=== PATIENT | male | born 1955 | race Caucasian/White ===

== ENCOUNTER 2017-04-23 23:27 | Emergency (ER) | payer OTHER ==
--- NOTE | 2017-04-24 00:17 | ED Physician Documentation ---
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 Has had vomiting just the past 2-3 hours. Poor intake due to nausea though.) Associated symptoms: Abdominal pain (diffuse, crampy, intermittent). No: Fever , Chest pain, Hematemesis, Melena, Hematochezia, Dysuria Contributing factors: No: Sick contact, Bad food, Travel, Recent antibiotics, Anticoagulated Improved by: No: Vomiting, BM Worsened by: Eating Similar symptoms before: Has not had sx before (no prior colitis nor diverticulitis.) Recently seen: Not recently seen Review of Systems Constitutional: reports: Myalgias. denies: Fever, Chills Nose: denies: Rhinorrhea / runny nose, Congestion Throat: denies: Sore throat Cardiac: denies: Chest pain / pressure Respiratory: denies: Cough GI: reports: Abdominal Pain, Nausea, Vomiting, Diarrhea. denies: Abdominal Swelling, Constipation, Hematemesis, Bloody / black stool : denies: Dysuria, Frequency Skin: denies: Rash, Lesions Musculoskeletal: denies: Extremity swelling Neurologic: reports: Generalized weakness. denies: Focal weakness, Near syncope Endocrine: denies: Easy bruising / bleeding Immunocompromised: denies: Immunocompromised PD PAST MEDICAL HISTORY - Past Medical History Past Medical History: No Endocrine/Autoimmune: None GI: None - Past Surgical History Past Surgical History: Yes - Present Medications Home Medications: Ambulatory Orders Medication Instructions Recorded Confirmed Diphenoxylate/Atropine [Lomotil] 1 each PO QID PRN #15 tablet 04/24/17 Ondansetron Odt [Zofran] 4 mg TL Q6H PRN #15 tablet 04/24/17 - Allergies Allergies/Adverse Reactions: Allergies Allergy/AdvReac Type Severity Reaction Status Date / Time No Known Drug Allergies Allergy Verified 04/23/17 23:40 - Social History Does the pt smoke?: No Smoking Status: Never smoker Does the pt drink ETOH?: No Does the pt have substance abuse?: No - Family History Family history: reports: Non contributory - Immunizations Immunizations are current?: Yes - POLST Patient has POLST: No PD ED PE NORMAL - Vitals Vital signs reviewed: Yes - General General: Alert and oriented X 3, No acute distress, Well developed/nourished - HEENT HEENT: PERRL (nonicteric), Pharynx benign - Neck Neck: Supple, no meningeal sign, No adenopathy - Cardiac Cardiac: RRR, No murmur - Respiratory Respiratory: Clear bilaterally - Abdomen Abdomen: Soft, Non tender, Non distended, No organomegaly. 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 ) - Back Back: No CVA TTP - Derm Derm: Normal color, Warm and dry - Extremities Extremities: No edema, No calf tenderness / cord - Neuro Neuro: Alert and oriented X 3, No motor deficit, Normal speech Results - Vitals Vitals: Vital Signs - 24 hr 04/23/17 04/24/17 04/24/17 23:38 01:21 01:52 Temperature 36.7 C Heart Rate 87 74 76 Respiratory 22 18 16 Rate Blood Pressure 129/83 H 142/66 H 121/76 O2 Saturation 96 100 97 Oxygen O2 Source Room air - Labs Labs: Microbiology 04/23/17 23:50 Clostridium difficile (PCR) - Final Stool 04/23/17 23:50 Campylobacter Antigen Assay - Final Stool Laboratory Tests 04/24/17 04/24/17 01:02 01:02 WBC 9.7 RBC 5.97 Hgb 17.5 Hct 51.5 MCV 86.2 MCH 29.3 MCHC 33.9 RDW 13.0 Plt Count 159 MPV 9.1 Neut # 7.9 H Lymph # 0.6 L [place] # 0.9 Eos # 0.0 Baso # 0.2 H Absolute Nucleated RBC 0.01 Nucleated RBCs 0.1 Sodium 137 Potassium 3.6 Chloride 105 Carbon Dioxide 24 Anion Gap 8.0 BUN 23 H Creatinine 1.0 Estimated GFR (MDRD) 76 L Glucose 131 H Calcium 8.4 L Magnesium 2.2 Total Bilirubin 0.9 AST 30 ALT 53 Alkaline Phosphatase 77 Total Protein 7.6 Albumin 4.4 Globulin 3.2 Albumin/Globulin Ratio 1.4 Lipase 24 PD MEDICAL DECISION MAKING - ED course Complexity details: considered differential (no focal tenderness in abd. Has vomiting and diarrhea abruptly. Presume viral GE vs. bacterial enteritis or food related. Less likely inflammatory and lower suspicion for focal such as diverticulitis nor appendicitis, given no focal tenderness. He is feeling better with fluids and meds here. Initial stool tests and labs are good. ), d/w patient Departure - Departure Disposition: 01 Home, Self Care Clinical Impression: Nausea vomiting and diarrhea Condition: Stable Record reviewed to determine appropriate education?: Yes Instructions: ED Diet Vomiting Diarrhea Prescriptions: Diphenoxylate/Atropine [Lomotil] 1 each PO QID PRN #15 tablet PRN Reason: Diarrhea Ondansetron Odt [Zofran] 4 mg TL Q6H PRN #15 tablet PRN Reason: Nausea / Vomiting Comments: Frequent fluids. Starches such as rice, breads, cereals to begin and progress diet as able. Zofran for nausea as needed. Lomotil for diarrhea as needed. Tylenol or hydrocodone as needed for cramps/pains. Recheck if not better in 1-2 days, or if other symptoms such as fevers, bloody stools, focal pains, other concerns. Discharge Date/Time: 04/24/17 02:29
[2017-04-24] MEDS ORDERED: SODIUM CHLORIDE 0.9% 1,000 ML IV ONE (00:41)
[2017-04-24] MEDS ORDERED: KETOROLAC 60 MG/2 ML VIAL IVP STA (00:41)
[2017-04-24] MEDS ORDERED: HYDROmorphone 1 MG/ML SYRINGE IVP STA (00:41)
[2017-04-24] MEDS ORDERED: ONDANSETRON 4 MG/2 ML VIAL IVP STA (00:41)
[2017-04-24] MEDS ORDERED: DIPHENOX/ATROPINE 2.5/0.025 MG TABLET PO STA (00:41)
[2017-04-24] MEDS ORDERED: KETOROLAC 30 MG/ML VIAL ONE (00:48)
[2017-04-24] MEDS ORDERED: HYDROmorphone 1 MG/ML SYRINGE ONE (00:48)
[2017-04-24] MEDS ORDERED: DIPHENOX/ATROPINE 2.5/0.025 MG TABLET PO ONE (00:49)
[2017-04-24] MEDS ORDERED: ONDANSETRON 4 MG/2 ML VIAL ONE (00:49)
[2017-04-24 01:13] LABS: BASOPHILS # (AUTO) 0.2 10^3/uL (0.0-0.1); BASOPHILS % (AUTO) 2.1 %; EOSINOPHILS % (AUTO) 0.2 %; HCT - HEMATOCRIT 51.5 % (42.0-52.0); HGB - HEMOGLOBIN 17.5 g/dL (14.0-18.0); LYMPHOCYTES # (AUTO) 0.6 10^3/uL (1.5-3.5); LYMPHOCYTES % (AUTO) 6.6 %; MEAN CORPUSCULAR HEMOGLOBIN 29.3 pg (27.0-31.0); MEAN CORPUSCULAR HGB CONC 33.9 g/dL (32.0-36.0); MEAN CORPUSCULAR VOLUME 86.2 fL (80.0-94.0); MEAN PLATELET VOLUME 9.1 fL (7.4-11.4); MONOCYTES # (AUTO) 0.9 10^3/uL (0.0-1.0); MONOCYTES % (AUTO) 9.6 %; NEUTROPHILS # (AUTO) 7.9 10^3/uL (1.5-6.6); NEUTROPHILS % (AUTO) 81.5 %; NUCLEATED RED BLOOD CELLS AUTO 0.1 /100WBC; RED BLOOD COUNT 5.97 10^6/uL (4.70-6.10); UNCORRECTED WHITE BLOOD COUNT 9.7 x10^3/uL; WHITE BLOOD COUNT 9.7 x10^3/uL (4.8-10.8)
[2017-04-24 01:23] LABS: ALBUMIN/GLOBULIN RATIO 1.4 (1.0-2.2); BILIRUBIN,TOTAL 0.9 mg/dL (0.2-1.0); CALCIUM 8.4 mg/dL (8.5-10.3); MAGNESIUM 2.2 mg/dL (1.7-2.8); POTASSIUM 3.6 mmol/L (3.5-5.0); TOTAL PROTEIN 7.6 g/dL (6.7-8.2)
[2017-04-24 01:54] VITALS: BP 121/76
[2017-04-24] MEDS ORDERED: ONDANSETRON ODT 4 MG Prepack 2 TL PRN (02:05)
[2017-04-24] MEDS ORDERED: HYDROcod/ACET 5/325 Prepack 6 PO ONE ×2 (02:05→02:10)
[2017-04-24] MEDS ORDERED: ONDANSETRON ODT 4 MG Prepack 2 TL ONE (02:11)
== END 2017-04-24 02:29 | disposition home or self-care (01) ==
LOC: ED 23:27
DX: R19.7 Diarrhea, unspecified (principal); R11.2 Nausea with vomiting, unspecified; R10.84 Generalized abdominal pain
CPT/HCPCS: 36415; 80053; 83690; 83735; 85025; 87045; 87046; 87077; 87493; 96361; 96374; 96375; 99284; A9270; J1170

== ENCOUNTER 2018-06-05 14:04 | Outpatient (CLI) | payer OTHER ==
[2018-06-05 18:07] LABS: BUN - BLOOD UREA NITROGEN 22 mg/dL (6-20); CALCIUM 8.9 mg/dL (8.5-10.3); CARBON DIOXIDE - CO2 26 mmol/L (21-32); CHLORIDE 102 mmol/L (101-111); CHOL/HDL RATIO 7.3 (<5.0); CHOLESTEROL 240 mg/dL; CREATININE 1.1 mg/dL (0.6-1.2); GFR - MDRD 68 (>89); GLUCOSE 89 mg/dL (70-100); HDL CHOLESTEROL 33 mg/dL; LDL CHOLESTEROL,CALCULATED 183 mg/dL; LDL/HDL RATIO 5.5 (<3.6); SODIUM 136 mmol/L (135-145); VLDL CHOLESTEROL 24 mg/dL
== END 2018-06-05 14:05 | disposition home or self-care (01) ==
LOC: LAB.F 14:04
PROVIDERS: ATTEND Internal Medicine
DX: Z00.00 Encounter for general adult medical examination without abnormal findings (principal)
CPT/HCPCS: 36415; 80048; 80061; 83721

== ENCOUNTER 2018-11-14 08:53 | Outpatient (CLI) | payer OTHER ==
--- NOTE | 2018-11-14 12:42 | XRAY Report ---
Reason: SHORTNESS OF BREATH Procedure Date: 11/14/2018 Accession Number: [id number] / [id number] Procedure: XR - Chest 2 View X-Ray CPT Code: 75367 FULL RESULT: EXAM: CHEST RADIOGRAPHY EXAM DATE: 11/14/2018 09:13 AM. CLINICAL HISTORY: SHORTNESS OF BREATH. COMPARISON: None. TECHNIQUE: 2 views. FINDINGS: Lungs/Pleura: No focal opacities evident. No pleural effusion. No pneumothorax. Normal volumes. Mediastinum: Heart and mediastinal contours are unremarkable. Other: None. IMPRESSION: No pneumonia. RADIA
== END 2018-11-14 08:54 | disposition home or self-care (01) ==
LOC: DI 08:53
PROVIDERS: ATTEND Nurse Practitioner Family
DX: R06.02 Shortness of breath (principal)
CPT/HCPCS: 71046

== ENCOUNTER 2018-12-06 09:05 | Outpatient (CLI) | payer OTHER | END 2018-12-06 09:06 | disposition home or self-care (01) | LOC: RT 09:05 | PROVIDERS: ATTEND Nurse Practitioner Family | DX: R06.2 Wheezing (principal) | CPT/HCPCS: 94010 ==

== ENCOUNTER 2019-10-26 07:54 | Day surgery (SDC) | payer OTHER ==
[~2019-10-26 07:54] MED LIST: LIDO GARGLE 30 ML BOTTLE PO ONE
[2019-10-26] MEDS ORDERED: fentaNYL 250 MCG/5 ML VIAL IVP ONE (07:55)
[2019-10-26] MEDS ORDERED: MIDAZOLAM 2 MG/2 ML VIAL IVP ONE (07:55)
[2019-10-26] MEDS ORDERED: LACTATED RINGERS 1,000 ML IV ONE ×2 (08:30→10:35)
[2019-10-26] MEDS ORDERED: LIDO GARGLE 30 ML BOTTLE ONE (08:33)
[2019-10-26 11:15] VITALS: BP 117/70
== END 2019-10-26 07:55 | disposition home or self-care (01) ==
LOC: SDS 07:54
PROVIDERS: ATTEND Internal Medicine Gastroenterology
PROC: 0DBN8ZZ Excision of Sigmoid Colon, Via Natural or Artificial Opening Endoscopic (ICD-10-PCS; principal; 2019-10-26 10:00)
PROC: 0DB58ZX Excision of Esophagus, Via Natural or Artificial Opening Endoscopic, Diagnostic (ICD-10-PCS; 2019-10-26 10:00)
DX: Z12.11 Encounter for screening for malignant neoplasm of colon (principal); K21.9 Gastro-esophageal reflux disease without esophagitis; D12.5 Benign neoplasm of sigmoid colon; K57.30 Diverticulosis of large intestine without perforation or abscess without bleeding; K20.9 Esophagitis, unspecified; E66.9 Obesity, unspecified; Z68.30 Body mass index [BMI] 30.0-30.9, adult; R06.83 Snoring; Z87.891 Personal history of nicotine dependence
CPT/HCPCS: 43239; 45380; A9270; J3010; J7120

== ENCOUNTER 2019-11-30 09:28 | Outpatient (CLI) | payer OTHER ==
[2019-11-30 10:59] VITALS: BP 152/87
--- NOTE | 2019-11-30 10:59 | SLEEP CARE CONSULTATION ---
Information from patient questionnaire entered by Gabriela Harrison. I have reviewed and concur with the information entered by Gabriela Harrison. This document represents the service I personally performed and the decisions made by me, Lisa Esposito MD, [facility]. History of Present Illness Reason for Visit: New patient Chief Complaint: reports: Snoring Duration of Symptoms: 3-4 years Usual bedtime: 2000 Time it takes to fall asleep: 15-30 minutes Snores at night: Yes Observed to quit breathing while asleep: Yes Sleeps alone due to snoring: Yes Number of times waking at night: 1-3 Reasons for waking at night: reports: Bathroom, Other (unknown reasons) Recalls having dreams: No Usually gets out of bed at: 0420 Feels refreshed in the morning: No Morning headache: Yes (days off) Sleepy or fatigued during the day: No Ever fallen asleep while driving: No Takes day naps: No Dreams during day naps: No Prior sleep studies: Yes Year and Where: 2007 [facility] now [facility] Additional HPI information: I had the pleasure of seeing Mr. Gomes today regarding the possibility of him having a sleep disorder. As you know, he is a 64 year old gentleman who complains of loud snore. He had a sleep study in [place] in 2007 and was told that everything was within normal limits. Since then he gained 50 lbs. The patient tells me that he normally goes to bed around 8 pm, and it takes him approximately 15 - 30 minutes to fall asleep. He has been told that he snores loudly and irregularly at night. He has also been observed to stop breathing in his sleep. His bed partner has to sleep in a separate room. He can recall waking up on the average of 1 - 3 times during the night. Most of the time he wakes up because of having to use the bathroom. He has awakened occasionally because of his own snoring, choking, and having to gasp for air. There is not a lot of tossing and turning in his sleep. No somniloquy (sleep talking) or somnambulism (sleep walking). Generally there is no recollection of dreams. In the morning he usually gets up out of the bed around 4:20 a.m. not feeling refreshed nor rested. He usually has a morning headache but only his days off. During the day he does not feel sleepy and fatigued. His score on [place] Sleepiness Scale is 3 out of 24. He has never fallen asleep while driving nor has had any accident due to sleepiness. He usually does not take naps during the day. Upon falling asleep during the day he denies having vivid dreams. He has never had sleep paralysis, experienced cataplexy or symptoms of restless leg syndrome. He reports having impaired concentration during the day. 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 Patient is Single and lives in [place]. Have you smoked in the past 12 months: No Cigarettes per day (20/pack): 20 Years of smokin Quit date: Smoking Pack Years: 35.0 Alcohol use: No Caffeine use: Yes Caffeine amount and frequency: 7-8 cups Family History Family history of sleep disordered breathing: Yes Family Hx Sleep Apnea: Mother: Snoring, Father: Snoring Allergies and Home Medications Known drug allergies: No Drug allergies reviewed: Yes Home medication list reviewed: Yes (esomeprazole) Review of Systems Weight gain over past 5 years: 10-15 Cardiovascular: reports: high blood pressure, irregular heart rate or pulse Respiratory: denies: shortness of breath, wheeze, sputum production, chronic cough, other Gastrointestinal: reports: heartburn Urinary: denies: incontinence, frequency, urgency, impotence, other Neurological: denies: headaches, seizure, head trauma, disorientation, speech dysfunction, gait or balance problems, fainting or unconsciousness, other Psychiatric: denies: Attention Deficit Hyperactivity, anxiety, depression, mood disorder, claustrophobia, other Ear/Nose/Throat: reports: nasal congestion, wisdom teeth removed Endocrine: denies: thyroid disease, history of goiter, sluggishness, too hot or cold, excessive thirst, increased appetite, increased urination, unexplained weakness, other Musculoskeletal: reports: joint pain Immunologic: denies: sneezing, rash, itching, allergies to food or environment, other Physical Exam Vital signs obtained and entered by: Dr. Nikomborirak Blood Pressure: 152/87 Cuff size: regular Heart Rate: 59 O2 Saturation: 97 Height: 5 ft 8 in Weight: 182 lb Body Mass Index: 27.6 BMI Classification: Overweight Neck circumference: 16 Mood/affect: Normal. HEENT: No craniofacial malformation Nostrils: patent to airflow Turbinates: normal Septum: midline Mouth and throat: narrow oropharynx Soft palate: long Hard palate: arched Uvula: normal Uvula visualization: 25% Mallampati Class III Tongue: normal in size Tonsils: small Chin and jaw: normal size and position Neck: normal w/o lymphadenopathy or thyromegaly Heart: regular rate and rhythm Lungs: clear bilaterally Abdomen: soft, non-tender Extremities: no edema or clubbing Neurologic: intact, no focal deficits Impression and Plan IMPRESSION: 1. Obstructive Sleep Apnea-Hypopnea Syndrome, as suggested by history of loud and irregular snoring, observed cessation of breath while asleep, cognitive impairment, and morning headache. Narrow oropharynx and obesity are common predisposing factors for obstructive sleep apnea-hypopnea syndrome. Pathophysiology of sleep-disordered breathing was discussed. I recommend proceeding to polysomnography to confirm the diagnosis and to assess severity. If he has significant sleep disordered breathing, a manual CPAP titration study will also be performed to find the optimal treatment pressure. I informed the patient of what the sleep studies involve and after some discussion, he agreed to proceed. Plan: 1. Schedule in-laboratory polysomnography 2. Avoid long distance driving or when feeling sleepy. 3. Avoid alcohol, sedative and muscle relaxant around bedtime. 4. Attempt to lose some weight. 5. Return in 1 to 2 weeks after the study to discuss results and initiate therapy. I spent 100% of this visit face to face with the patient with greater than 50% of this was spent time counseling the patient and coordination of care.
== END 2019-11-30 09:29 | disposition home or self-care (01) ==
LOC: SC 09:28
PROVIDERS: ATTEND Internal Medicine Pulmonary Disease
DX: R06.83 Snoring (principal); R06.81 Apnea, not elsewhere classified; R41.89 Other symptoms and signs involving cognitive functions and awareness; R51 Headache
CPT/HCPCS: 99203; 99212

== ENCOUNTER → 2019-12-12 | Outpatient (CLI) | payer OTHER | LOC: SC 19:30 | PROVIDERS: ATTEND Internal Medicine Pulmonary Disease | DX: G47.33 Obstructive sleep apnea (adult) (pediatric) (principal) | CPT/HCPCS: 95806 ==

== ENCOUNTER 2020-01-01 14:39 | Emergency (ER) | payer OTHER ==
[2020-01-01 15:25] LABS: BASOPHILS % (AUTO) 0.3 %; HGB - HEMOGLOBIN 16.7 g/dL (14.0-18.0); LYMPHOCYTES % (AUTO) 7.9 %; MEAN CORPUSCULAR HGB CONC 34.2 g/dL (32.0-36.0); MEAN CORPUSCULAR VOLUME 87.6 fL (80.0-94.0); MEAN PLATELET VOLUME 11.1 fL (7.4-11.4); MONOCYTES % (AUTO) 13.4 %; NEUTROPHILS % (AUTO) 77.7 %; PLT - PLATELET COUNT 198 10^3/uL (130-450); RED BLOOD COUNT 5.57 10^6/uL (4.70-6.10); RED CELL DISTRIBUTION WIDTH 12.3 % (12.0-15.0); WHITE BLOOD COUNT 20.6 x10^3/uL (4.8-10.8)
[2020-01-01 15:26] LABS: ABNORMAL LYMPHS % (MANUAL) 0 %; BAND NEUTROPHILS % (MANUAL) 0 %
[2020-01-01 15:40] LABS: ALBUMIN 4.3 g/dL (3.2-5.5); ALBUMIN/GLOBULIN RATIO 1.4 (1.0-2.2); CALCIUM 9.1 mg/dL (8.5-10.3); CREATININE 1.9 mg/dL (0.6-1.2); TOTAL PROTEIN 7.4 g/dL (6.7-8.2)
[2020-01-01 15:51] LABS: DIFFERENTIAL COMMENT MANUAL DIFFERENTIAL; LYMPHOCYTES # (MANUAL) 0.6 10^3/uL (1.5-3.5); LYMPHOCYTES % (MANUAL) 3 %; MONOCYTES # (MANUAL) 2.7 10^3/uL (0.0-1.0); PLATELET ESTIMATE, MANUAL NORMAL (130-450,000) (NORMAL); PLATELET MORPHOLOGY NORMAL APPEARANCE (NORMAL); RBC MORPHOLOGY (MULTIPLE) NORMAL APPEARANCE (NORMAL)
[2020-01-01] MEDS ORDERED: SODIUM CHLORIDE 0.9% 1,000 ML IV ONE ×2 (17:28)
[2020-01-01] MEDS ORDERED: MORPHINE 2 MG/ML CARPUJECT IVP STA (17:29)
--- NOTE | 2020-01-01 17:30 | ED Physician Documentation ---
PD HPI ABD PAIN - Stated complaint Stated Complaint: WEAKNESS, LOWER BACK PX - Chief complaint Chief Complaint: Abd Pain - History obtained from History obtained from: Patient (He became acutely ill yesterday morning early with diffuse abdominal pain and vomiting. He saw his doctor and was prescribed Zofran. The abdominal pain became much more focused in the periumbilical area. Now his belly pain is gone and is more of a diffuse ache from the hips up to the ribs on both sides. The nausea is gone to. He has not had a bowel movement in about 2 days. He feels weak generally.) Review of Systems Constitutional: reports: Fatigue. denies: Fever, Chills Cardiac: denies: Chest pain / pressure, Palpitations Respiratory: denies: Dyspnea, Cough GI: reports: Abdominal Pain, Nausea, Vomiting. denies: Diarrhea, Hematemesis, Bloody / black stool : denies: Dysuria, Frequency, Hesitancy PD PAST MEDICAL HISTORY - Past Medical History Cardiovascular: Hypertension, Arrhythmia Respiratory: Pneumonia, Sleep apnea Endocrine/Autoimmune: None GI: Colon polyps : None HEENT: None Psych: None Musculoskeletal: Osteoarthritis - Past Surgical History Past Surgical History: Yes General: Colonoscopy - Present Medications Home Medications: Ambulatory Orders Medication Instructions Recorded Confirmed Hydrocodone/Acetaminophen 1 - 2 each PO Q6H PRN #14 tablet 01/01/20 [Hydrocodon-Acetaminophen 5-325] - Allergies Allergies/Adverse Reactions: Allergies Allergy/AdvReac Type Severity Reaction Status Date / Time No Known Drug Allergies Allergy Verified 01/01/20 14:52 - Social History Does the pt smoke?: No Smoking Status: Never smoker Does the pt drink ETOH?: No Does the pt have substance abuse?: No - Family History Family history: reports: Non contributory - Immunizations Immunizations are current?: Yes - POLST Patient has POLST: No PD ED PE NORMAL - Vitals Vital signs reviewed: Yes - General General: Alert and oriented X 3, No acute distress - HEENT HEENT: PERRL, EOMI - Neck Neck: Supple, no meningeal sign, No bony TTP - Cardiac Cardiac: RRR, No murmur - Respiratory Respiratory: No respiratory distress, Clear bilaterally - Abdomen Abdomen: Other (Minimal diffuse abdominal tenderness without surgical signs, diminished to almost absent bowel tones.) - Back Back: No CVA TTP, No spinal TTP - Derm Derm: Normal color, Warm and dry - Extremities Extremities: No edema, No calf tenderness / cord - Neuro Neuro: Alert and oriented X 3, Normal speech Results - Vitals Vitals: Vital Signs - 24 hr 01/01/20 01/01/20 01/01/20 14:48 17:39 19:12 Temperature 37.2 C Heart Rate 82 79 75 Respiratory 18 18 16 Rate Blood Pressure 158/89 H 140/79 H 135/73 H O2 Saturation 95 93 98 01/01/20 20:03 Temperature Heart Rate 72 Respiratory 14 Rate Blood Pressure 134/72 H O2 Saturation 95 Oxygen O2 Source Room air - Labs Labs: Laboratory Tests 01/01/20 01/01/20 01/01/20 15:00 15:18 15:18 WBC 20.6 H RBC 5.57 Hgb 16.7 Hct 48.8 MCV 87.6 MCH 30.0 MCHC 34.2 RDW 12.3 Plt Count 198 MPV 11.1 Neut # (Auto) Not Reportable Lymph # (Auto) Not Reportable [place] # (Auto) Not Reportable Eos # (Auto) Not Reportable Baso # (Auto) Not Reportable Absolute Nucleated RBC Not Reportable Total Counted 100 Band Neuts % (Manual) 0 Abnorm Lymph % (Manual) 0 Nucleated RBC % Not Reportable Neutrophils # (Manual) 17.3 H Lymphocytes # (Manual) 0.6 L Monocytes # (Manual) 2.7 H Eosinophils # (Manual) 0.0 Basophils # (Manual) 0.0 Differential Comment MANUAL DIFFERENTIAL Manual Slide Review Indicated WBC Morphology NORMAL APPEARANCE Platelet Estimate NORMAL (130-450,000) Platelet Morphology NORMAL APPEARANCE RBC Morph Micro Appear NORMAL APPEARANCE Sodium 136 Potassium 4.0 Chloride 100 L Carbon Dioxide 25 Anion Gap 11.0 BUN 30 H Creatinine 1.9 H Estimated GFR (MDRD) 36 L Glucose 120 H Calcium 9.1 Total Bilirubin 2.0 H AST 21 ALT 30 Alkaline Phosphatase 56 Total Protein 7.4 Albumin 4.3 Globulin 3.1 Albumin/Globulin Ratio 1.4 Lipase 27 Urine Color YELLOW Urine Clarity CLEAR Urine pH 7.0 Ur Specific [place] 1.020 Urine Protein 30 H Urine Glucose (UA) NEGATIVE Urine Ketones NEGATIVE Urine Occult Blood SMALL H Urine Nitrite NEGATIVE Urine Bilirubin NEGATIVE Urine Urobilinogen 0.2 (NORMAL) Ur Leukocyte Esterase NEGATIVE Urine RBC 0-5 Urine WBC 0-3 Ur Squamous Epith Cells NONE SEEN Urine Bacteria None Seen Ur Microscopic Review INDICATED Urine Culture Comments NOT INDICATED - Rads (name of study) CT A/P Radiology: EMP read contemporaneously (Left hydronephrosis and perinephric stranding secondary to a 0.3 cm stone in the upper left ureter and hepatic steatosis.) PD MEDICAL DECISION MAKING - ED course ED course: 64-year-old gentleman presents with abdominal pain and found to have renal col ic. He has a significant leukocytosis but no evidence of infection on the CT or urinalysis. Probably just the marginalization I think. Feeling much better after IV fluids here. No persistent abdominal tenderness on reexamination. Departure - Departure Disposition: Home, Self Care Clinical Impression: Renal colic, Prerenal azotemia Condition: Good Record reviewed to determine appropriate education?: Yes Instructions: ED Stone Renal W Colic Prescriptions: Hydrocodone/Acetaminophen [Hydrocodon-Acetaminophen 5-325] 1 - 2 each PO Q6H PRN #14 tablet PRN Reason: pain Comments: Given the prerenal azotemia you need to drink plenty of fluids and talk with your doctor on Saturday having repeat labs. Strain your urine as discussed and return if worse. Discharge Date/Time: 01/01/20 20:08
[2020-01-01] MEDS ORDERED: IOVERSOL 320 100 ML VIAL IVP ONE ×2 (17:34→18:32)
[2020-01-01 18:53] LABS: BILIRUBIN,URINE NEGATIVE (NEGATIVE); GLUCOSE, URINE (UA) NEGATIVE (NEGATIVE); KETONES,URINE (UA) NEGATIVE (NEGATIVE); LEUKOCYTE ESTERASE, URINE NEGATIVE (NEGATIVE); NITRITE,URINE NEGATIVE (NEGATIVE); OCCULT BLOOD,URINE SMALL (NEGATIVE); PROTEIN,URINE 30 mg/dL (NEGATIVE); UROBILINOGEN,URINE 0.2 (NORMAL) E.U./dL (NORMAL)
[2020-01-01 18:56] LABS: CLARITY,URINE CLEAR (CLEAR)
--- NOTE | 2020-01-01 18:56 | CT Report ---
Reason: abd pain Procedure Date: 01/01/2020 Accession Number: [id number] / [id number] Procedure: CT - Abdomen/Pelvis W CPT Code: Final Report FULL RESULT: EXAM: CT ABDOMEN AND PELVIS EXAM DATE: 01/01/2020 06:31 PM. CLINICAL HISTORY: Abdominal pain COMPARISONS: None. TECHNIQUE: Routine helical CT imaging was performed through the abdomen and pelvis. IV contrast: OPTIRAY 320. Enteric contrast: No. Reconstructions: Coronal and sagittal. In accordance with CT protocol optimization, one or more of the following dose reduction techniques were utilized for this exam: automated exposure control, adjustment of mA and/or KV based on patient size, or use of iterative reconstructive technique. FINDINGS: Lung Bases: There is mild atelectasis within the lung bases. Liver: There is mild hepatic steatosis. There is a subcentimeter hypodensity possibly international account representative of a cyst within segment 2 of the liver. Gallbladder/Bile Ducts: Unremarkable. Spleen: Normal. Pancreas: Normal. Adrenal Glands: Normal. Kidneys: There is mild left hydronephrosis and perinephric stranding secondary to a 0.3 cm stone within the upper left ureter. The right kidney demonstrates no significant abnormalities. Peritoneal Cavity/Bowel: Normal. No free fluid, free air or adenopathy. No masses or acute inflammatory process. No evidence of appendicitis. Pelvic Organs: Normal. The bladder and visualized pelvic organs are within normal limits. Vasculature: No aneurysms or other significant abnormality. Bones: No significant abnormality. Other: None. IMPRESSION: 1. There is mild left hydronephrosis and perinephric stranding secondary to a 0.3 cm stone within the upper left ureter. 2. There is hepatic steatosis. RADIA
[2020-01-01 19:02] LABS: BACTERIA,URINE None Seen /HPF (None Seen); RBC,URINE 0-5 /HPF (0-5); SQUAMOUS EPITHELIAL CELL,UR NONE SEEN (<= Few)
[2020-01-01 20:08] VITALS: BP 134/72
== END 2020-01-01 20:08 | disposition home or self-care (01) ==
LOC: ED 14:39
DX: N13.2 Hydronephrosis with renal and ureteral calculous obstruction (principal); R79.89 Other specified abnormal findings of blood chemistry; K76.0 Fatty (change of) liver, not elsewhere classified; I10 Essential (primary) hypertension
CPT/HCPCS: 36415; 74177; 80053; 81001; 83690; 85025; 96361; 96374; 99284; Q9967; 81003; 87086

== ENCOUNTER 2020-01-04 13:02 | Outpatient (CLI) | payer OTHER ==
[2020-01-04 15:08] VITALS: BP 124/68
--- NOTE | 2020-01-04 15:08 | SLEEP CARE CONSULTATION ---
Information from patient questionnaire entered by Donna Sanchez. I have reviewed and concur with the information entered by Donna Sanchez. This document represents the service I personally performed and the decisions made by me, Reny Jain RN, MSN, [employer]. History of Present Illness Initial [place] Sleepiness Scale score: 3 Current [place] Sleepiness Scale score: 5 Additional HPI information: DARRICK FUENTES returns for follow up and results of the recently performed polysomnography. I explained the pathophysiology behind obstructive sleep apnea. We then spent quite a bit of time discussing different treatment options. For mild obstructive sleep apnea, surgery and oral appliance are alternatives to nasal CPAP therapy but in moderate or severe cases, nasal CPAP is the most effective and reliable treatment. Because apnea is primarily in supine position, then positional management therapy could be effective in reducing apnea risk . Methods discussed such as positioning with pillows, using a T-shirt with tennis balls in the back, and shown commercial products that have a pillow format on back to prevent supine sleep. I reviewed the impact of weight changes on sleep apnea and strongly recommended losing weight. After some discussion, the patient opted to consider his options of treatment with his partner and contact this within a month with his choice of treatment. [facility] Pap and Non Pap treatment pamphlets reviewed and given to patient. Patient counseled not drink alcohol less than 4 hours before bedtime as it can increase snoring and apnea. Patient was cautioned about risks of drowsy driving until sleepiness symptoms resolve. Patient denies drowsy driving. [facility] patient education on snoring and sleep apnea given and reviewed. Sleep Study - Results Polysomnography/Home Sleep Study results: SLEEP TIME AND EFFICIENCY: The sleep study recording began at 09:24:49 PM and ended at 06:16:47 AM. Total recording time was 532.0 minutes. The total sleep time was 507.5 minutes. The sleep efficiency was 95.4 percent. The patient spent 194.0 minutes supine, and spent 313.5 minutes non-supine. The patients own estimate of sleep time was 8.00 hours. RESPIRATORY DATA: The AHI in this report is indexed to sleep time based on actigraphy. The AASM defines this as SILVERIO. The AHI on this type 3 Home Sleep Study may understate the AHI determined on a type 1 or 2 study, since EEG is not monitored resulting in the inability to score non-desaturating hypopneas. Based on 4% Calculation: The AHI4% calculation of 22.8 per hour of recording time was based on a total of 148 scored apneas and 45 scored hypopneas with 4% desaturations. Supine AHI4%: 47.0 per hour. Non-supine AHI4%: 7.8 per hour. Oxygen Summary: Patient's baseline O2 saturation was 96.4 %. The patient spent 0.6 minutes at an oxygen saturation less than 90%, and 0.0 minutes less than 85%. The desaturation index was 12.2 events per hour sleep time. The lowest saturation was 86.8 %. SNORING: The percent of the study time spent snoring was 17.3 %. The Snoring Count was 2488 . The Snoring Index was Patient Name: Darrick Fuentes Study Date: 12/12/2019 : 1955 Page 2 of 7 294.1 . PULSE RATE REVIEW: The mean heart rate was 58 beats per minute. The rate ranged from a low of 34 to a high of 85 beats per minute. DIAGNOSIS CODE: Moderate obstructive sleep apnea G47.33 occuring mainly during supine sleep. Allergies and Home Medications Known drug allergies: No Home medication list reviewed: Yes Allergy and home medication list: hydrocodone / acetaminophen 1-2 every 6 hours as needed anti nausea medication Review of Systems Review of systems same as previous: No (ER for left kidney stone ) Physical Exam Blood Pressure: 124/68 Cuff size: long Heart Rate: 57 O2 Saturation: 97 Height: 5 ft 8 in Weight: 193 lb 12.8 oz Body Mass Index: 29.5 BMI Classification: Overweight Impression and Plan 1. Obstructive Sleep Apnea-Hypopnea Syndrome, moderate with lowest oxygen saturation of 90% . Obviously this is the cause of the patients symptoms of unrefreshed sleep. As mentioned above, the patient will discuss his treatment options with is partner and contact this office. Patient education given on sleep apnea, and pap and non pap treatments. He is advised to conact this ffice within a month. Most insurance companies want patients to start therapy within 6 months of treatment. Compliance guidelines also reviewed. A copy of compliance guidelines and DME companies will be reviewed and given at check out. Because the apnea is more severe supine, I instructed to avoid sleeping supine using pillow positioning until able to start CPAP use. * Contact this office with choice of treatment * Attempt to lose weight. * Avoid alcohol consumption near bedtime. * Avoid supine sleep until using an oral appliance or CPAP. * The patient is again cautioned about driving until sleepiness completely resolves. * Return after treatment decided for proper follow up . Time Spent with Patient (minutes): 35 I spent 100% of this visit face to face with the patient with greater than 50% of this was spent time counseling the patient and coordination of care.
== END 2020-01-04 13:03 | disposition home or self-care (01) ==
LOC: SC 13:02
PROVIDERS: ATTEND Nurse Practitioner Family
DX: G47.33 Obstructive sleep apnea (adult) (pediatric) (principal); E66.3 Overweight; Z68.29 Body mass index [BMI] 29.0-29.9, adult
CPT/HCPCS: 99212; 99214

== ENCOUNTER 2024-06-08 08:00 | Outpatient (CLI) | payer MEDICARE, OTHER | END 2024-06-08 23:59 | disposition home or self-care (01) | LOC: LAB.S 08:00 | PROVIDERS: ATTEND Nurse Practitioner | DX: L02.91 Cutaneous abscess, unspecified (principal) | CPT/HCPCS: 87070; 87077; 87205 ==